=== PATIENT | male | born 1960 | race Caucasian/White ===

== ENCOUNTER 2023-01-07 19:24 | Emergency (ER) | payer OTHER ==
[~2023-01-07] VITALS: Ht 172.7 cm; Wt 106.9 kg
[2023-01-07] MEDS ORDERED: CLAR10CA3 PO (19:36)
[2023-01-07] MEDS ORDERED: ROSU20TA61 PO (19:36)
[2023-01-07] MEDS ORDERED: LISI20TA35 PO (19:36)
[2023-01-07 21:18] LABS: BASO # 0.1 10^3/uL (0.0-0.2); BASO % 0.6 % (0.0-1.0); EOS # 0.3 10^3/uL (0.0-0.5); EOS % 1.5 % (0.0-3.0); HEMATOCRIT 45.1 % (42.0-52.0); HEMOGLOBIN 15.2 g/dl (13.5-17.5); LYMPH # 1.2 10^3/uL (1.5-5.0); LYMPH % 7.6 % (24.0-44.0); MEAN CORPUSCULAR HEMOGLOBIN 28.3 pg (27.0-33.0); MEAN CORPUSCULAR HGB CONC 33.7 g/dl (32.0-36.5); MONO # 1.1 10^3/uL (0.0-0.8); NEUTROPHILS # 13.4 10^3/uL (1.5-8.5); NEUTROPHILS % 82.7 % (36.0-66.0); PLATELET COUNT, AUTOMATED 316 10^3/uL (150-450); RED BLOOD COUNT 5.37 10^6/uL (4.30-6.10); WHITE BLOOD COUNT 16.2 10^3/uL (4.0-10.0)
[2023-01-07 21:39] LABS: ERYTHROCYTE SEDIMENTATION RATE 41 mm/hr (0-20)
[2023-01-07] MEDS ORDERED: KETOROLAC 30 MG/ML 1ML VIAL IV ONE (22:20)
[2023-01-08] MEDS ORDERED: DALBAVANCIN 1,500 MG in D5W 250 ML IV ONE (00:25)
[2023-01-08] MEDS ORDERED: NAPR-837 PO (00:57)
[2023-01-08] MEDS ORDERED: NORCO 5/325MG TABLET (HOME DOSE PACK) PO ONE (01:00)
[2023-01-08 01:54] VITALS: BP 134/80; TEMP 98.2; O2SAT 100
== END 2023-01-08 01:55 | disposition home or self-care (01) ==
LOC: M ED 19:24
DX: L03.313 Cellulitis of chest wall (principal); L72.9 Follicular cyst of the skin and subcutaneous tissue, unspecified; I10 Essential (primary) hypertension; E78.5 Hyperlipidemia, unspecified; Z95.0 Presence of cardiac pacemaker; Z79.899 Other long term (current) drug therapy
CPT/HCPCS: 76604; 80047; 85025; 85652; 86140; 87040; 87070; 87077; 87186; 96365; 96375; 99284; J0875; J1885